=== PATIENT | male | born 1970 | race American Indian/Alaskan Native ===

== ENCOUNTER 2017-05-06 17:14 | Emergency (ER) | payer MEDICARE ==
--- NOTE | 2017-05-06 19:15 | Emergency Department Report ---
ED Fall HPI - General Chief Complaint: Fall Stated Complaint: FELL/LETHARGIC Time Seen by Provider: 05/06/17 18:58 Source: family, EMS Mode of arrival: Stretcher Limitations: Other (Austistic, MR) - History of Present Illness Initial Comments: 46-year-old male with a past medical history of autism and MR presents to the hospital status post fall. Follows witnessed by family members. Patient fell in the shower, no LOC, no head injury. Patient not complaining of any pain however, family member wanted him checked out because he seemed more lethargic the usual however, during his one and a half hours stay in the ED prior to my evaluation she states patient is at his normal mental status and family feels he is ready to go home. - Related Data Allergies Allergy/AdvReac Type Severity Reaction Status Date / Time Penicillins Allergy Unknown Verified 05/06/17 17:19 ED Review of Systems ROS: Stated complaint: FELL/LETHARGIC Other details as noted in HPI Comment: Unobtainable due to pts medical conditions (MR/autism/nonverbal) ED Past Medical Hx - Past Medical History Previous Medical History?: Yes Additional medical history: autism, MR - Surgical History Past Surgical History?: No - Social History Smoking Status: Never Smoker Substance Use Type: None ED Physical Exam - General Limitations: Physical Limitation - Other Other exam information: General: No limitations, patient is alert in no acute distress Head exam: Atraumatic, normocephalic, no hematoma Eyes exam: Normal appearance Neck exam: Normal inspection, full range of motion, no meningismus nontender Respiratory exam: Clear to auscultation bilateral, no wheezes, rales, crackles, no chest wall tenderness Cardiovascular: Normal rate and rhythm Abdomen: Soft, nondistended, and nontender, with normal bowel sounds, no rebound, or guarding Extremity: Full range of motion is arms and legs without any tenderness with movement or palpation. No tenderness with movement and palpation of pelvis, no deformity Back: Normal Inspection, full range of motion, no tenderness, no ecchymosis Neurologic: Alert, follows commands, nonverbal, no motor or sensory deficit noted Psychiatric: normal affect, normal mood Skin: Warm, dry, intact ED Course Vital Signs 05/06/17 05/06/17 18:13 18:45 Temperature 98.1 F Pulse Rate 90 Respiratory 18 Rate Blood Pressure 149/101 [Left] O2 Sat by Pulse 99 99 Oximetry - Reevaluation(s) Reevaluation #1: 05/06/17 19:27 Patient asymptomatic. BP noted to be a little elevated. No previous history of hypertension ED Medical Decision Making - Medical Decision Making Patient had a witnessed fall with no head injury or LOC. Patient does not have any pain and is asymptomatic in the ED. Mental status is normal. Blood pressure is little elevated. I recommended that family document blood pressure while at home and follow up with PMD - Differential Diagnosis fall, contusion, sprain, fracture Critical Care Time: No Critical care attestation.: If time is entered above; I have spent that time in minutes in the direct care of this critically ill patient, excluding procedure time. ED Disposition Clinical Impression: Fall with no injury, Autism, Elevated blood pressure reading Disposition: - TO HOME OR SELFCARE Is pt being admited?: No Does the pt Need Aspirin: No Condition: Stable Instructions: Fall Prevention (ED), How to Take a Blood Pressure (ED) Additional Instructions: Continue to monitor patient's blood pressure at home. Keep a recording of blood pressure levels. Follow-up with primary care doctor for further management. Return if symptoms worsen. Referrals: PRIMARY CARE, [Primary Care Provider] - 2-3 Days Time of Disposition: 19:29
[2017-05-06 20:01] VITALS: BP 154/100
== END 2017-05-06 19:40 | disposition home or self-care (01) ==
LOC: ED 17:14
DX: F84.0 Autistic disorder (principal); R03.0 Elevated blood-pressure reading, without diagnosis of hypertension; R53.83 Other fatigue; W19.XXXA Unspecified fall, initial encounter; Z88.0 Allergy status to penicillin
CPT/HCPCS: 99283